=== PATIENT | male | born 1980 | race American Indian/Alaskan Native ===

== ENCOUNTER 2021-07-06 12:27 | Emergency (ER) | payer SELFPAY ==
[2021-07-06 12:54] VITALS: BP 116/76
--- NOTE | 2021-07-06 13:29 | Emergency Department Report ---
- General Chief Complaint: Upper Respiratory Infection Stated Complaint: ASTHMA Time Seen by Provider: 07/06/21 12:46 Source: patient Mode of arrival: Ambulatory Limitations: No Limitations - History of Present Illness Initial Comments: 41-year-old morbid obese -[place] male presents to the emergency room reporting he has a history of COPD and has been using his Atrovent and albuterol which helps with his shortness of breath but is still having severe cough. He states that his cough is so bad is not able to sleep at night. Patient states he recently relocated from [place] to take care of a sick. He states his primary care provider is Dr. Matos [place]. Patient states he usually gets prednisone 50 mg daily for 5 days and a prescription for Tussionex. Patient denies any fever no chills no nausea no vomiting. Patient states he does not smoke cigarettes. MD Complaint: cough Onset/Timin -: days(s) Severity: severe Severity scale (0 -10): 8 Consistency: constant Context: recent travel Associated Symptoms: cough. denies: fever, chills, myalgias, diaphoresis, headache, rhinorrhea, stiff neck, chest pain, shortness of breath, abdominal pain, nausea, vomiting - Related Data Previous Rx's Medication Instructions Recorded Last Taken Type Hydrocodone/Chlorphen P-Stirex 115 ml PO Q12H PRN #115 heber.er.12h 07/06/21 Unknown Rx [Tussionex Pennkinetic Susp] predniSONE [Deltasone] 50 mg PO QDAY 5 Days #5 tab 07/06/21 Unknown Rx Allergies Allergy/AdvReac Type Severity Reaction Status Date / Time No Known Allergies Allergy Unverified 07/06/21 12:30 ED Review of Systems ROS: Stated complaint: ASTHMA Other details as noted in HPI Comment: All other systems reviewed and negative ED Past Medical Hx - Medications Home Medications: Home Medications Medication Instructions Recorded Confirmed Last Taken Type Hydrocodone/Chlorphen P-Stirex 115 ml PO Q12H PRN #115 heber.er.12h 07/06/21 Unknown Rx [Tussionex Pennkinetic Susp] predniSONE [Deltasone] 50 mg PO QDAY 5 Days #5 tab 07/06/21 Unknown Rx ED Physical Exam - General Limitations: No Limitations General appearance: alert, in no apparent distress, obese - Head Head exam: Present: atraumatic, normocephalic - Eye Eye exam: Present: normal appearance - ENT ENT exam: Present: mucous membranes moist - Neck Neck exam: Present: normal inspection - Respiratory Respiratory exam: Present: normal lung sounds bilaterally. Absent: respiratory distress - Cardiovascular Cardiovascular Exam: Present: regular rate, normal rhythm. Absent: systolic murmur, diastolic murmur, rubs, gallop - GI/Abdominal GI/Abdominal exam: Present: soft, normal bowel sounds - Rectal Rectal exam: Present: deferred - Extremities Exam Extremities exam: Present: normal inspection - Back Exam Back exam: Present: normal inspection - Neurological Exam Neurological exam: Present: alert, oriented X3 - Psychiatric Psychiatric exam: Present: normal affect, normal mood - Skin Skin exam: Present: warm, dry, intact, normal color. Absent: rash ED Course Vital Signs 07/06/21 07/06/21 12:30 12:53 Temperature 99.4 F 99.6 F Pulse Rate 92 H 94 H Respiratory 20 16 Rate Blood Pressure 138/69 116/76 [Right] O2 Sat by Pulse 95 96 Oximetry ED Medical Decision Making - Medical Decision Making 41-year-old morbid obese -[place] male presents to the emergency room reporting he has a history of COPD and has been using his Atrovent and albuterol which helps with his shortness of breath but is still having severe cough. He states that his cough is so bad is not able to sleep at night. Patient states he recently relocated from [place] to take care of a sick. He states his primary care provider is Dr. Matos [place]. Patient states he usually gets prednisone 50 mg daily for 5 days and a prescription for Tussionex. Patient denies any fever no chills no nausea no vomiting. Patient states he does not smoke cigarettes. Patient's lungs are clear do not hear any wheezing or rhonchus. Patient will be placed on prednisone 50 mg daily for 5 days and a prescription for Tussionex. Critical care attestation.: If time is entered above; I have spent that time in minutes in the direct care of this critically ill patient, excluding procedure time. ED Disposition Clinical Impression: COPD (chronic obstructive pulmonary disease), Cough, Severely overweight Disposition: 01 HOME / SELF CARE / HOMELESS Is pt being admited?: No Does the pt Need Aspirin: No Condition: Stable Instructions: Chronic Obstructive Pulmonary Disease (ED), Chronic Obstructive Pulmonary Disease Exacerbation, [id number], Exercising to Lose Weight, BMI for Adults, COPD and Physical Activity Additional Instructions: Complete steroids as prescribed. Take cough medication only as needed. Do not operate heavy machinery while taking cough medication. Is important to follow- up with a primary care provider and a laboratory technologist. Is very important you lose weight as you may be having obstructive sleep disorder. Prescriptions: predniSONE [Deltasone] 50 mg PO QDAY 5 Days #5 tab Hydrocodone/Chlorphen P-Stirex [Tussionex Pennkinetic Susp] 115 ml PO Q12H PRN #115 heber.er.12h PRN Reason: Cough Referrals: VERN KNAPP MD [Staff Physician] - 3-5 Days LUISA GARLAND MD [Staff Physician] - 3-5 Days Time of Disposition: 13:31
== END 2021-07-06 13:52 | disposition home or self-care (01) ==
LOC: ED 12:27
DX: J44.9 Chronic obstructive pulmonary disease, unspecified (principal); Z79.899 Other long term (current) drug therapy
CPT/HCPCS: 99282

== ENCOUNTER 2021-11-16 17:12 | Emergency (ER) | payer SELFPAY ==
--- NOTE | 2021-11-16 18:03 | XRay Report ---
CHEST 2 VIEWS INDICATION / CLINICAL INFORMATION: cough. COMPARISON: None available. FINDINGS: SUPPORT DEVICES: None. HEART / MEDIASTINUM: No significant abnormality. LUNGS / PLEURA: No significant pulmonary or pleural abnormality. No pneumothorax. ADDITIONAL FINDINGS: No significant additional findings. IMPRESSION: 1. No acute findings. Signer Name: Hola Willett MD Signed: 11/16/2021 5:58 PM Workstation Name: [id number]
--- NOTE | 2021-11-16 22:07 | Emergency Department Report ---
- General Chief Complaint: Upper Respiratory Infection Stated Complaint: ASTHMA/BAD COUGH Time Seen by Provider: 11/16/21 21:32 Source: patient Mode of arrival: Ambulatory Limitations: No Limitations - History of Present Illness Initial Comments: 41-year-old male with past medical history of asthma and chronic bronchitis presents emerged department complaining of a flareup after returning home to [facility]. States while he was home there is a lot of snow when he had return to this morning department and now reports having a 4-day history of cough congestion with mucus production. Reports no fever, chills, sweats. No hemoptysis symptoms and no hematochezia. States that he has asthma medication at home but he does need a refill of his steroids and Intestinex to the comb ination he received the last time he had flareup MD Complaint: cough, nasal congestion -: Gradual Consistency: constant Associated Symptoms: cough. denies: headache, rhinorrhea, nasal congestion, vomiting, diarrhea, dysuria, right sweats, weight loss, epistaxis - Related Data Previous Rx's Medication Instructions Recorded Last Taken Type Hydrocodone/Chlorphen P-Stirex 115 ml PO Q12H PRN #115 heber.er.12h 11/16/21 Unknown Rx [Tussionex Pennkinetic Susp] Hydrocodone/Chlorphen Polis(Nf 5 ml PO Q12H PRN #240 11/16/21 Unknown Rx [Tussionex (Nf)] predniSONE [Deltasone] 50 mg PO QDAY 5 Days #5 tab 11/16/21 Unknown Rx Allergies Allergy/AdvReac Type Severity Reaction Status Date / Time No Known Allergies Allergy Unverified 07/06/21 12:30 ED Review of Systems ROS: Stated complaint: ASTHMA/BAD COUGH Other details as noted in HPI Comment: All other systems reviewed and negative ED Past Medical Hx - Medications Home Medications: Home Medications Medication Instructions Recorded Confirmed Last Taken Type Hydrocodone/Chlorphen P-Stirex 115 ml PO Q12H PRN #115 heber.er.12h 11/16/21 Unknown Rx [Tussionex Pennkinetic Susp] Hydrocodone/Chlorphen Polis(Nf 5 ml PO Q12H PRN #240 11/16/21 Unknown Rx [Tussionex (Nf)] predniSONE [Deltasone] 50 mg PO QDAY 5 Days #5 tab 11/16/21 Unknown Rx ED Physical Exam - General Limitations: No Limitations General appearance: alert, in no apparent distress - Head Head exam: Present: atraumatic, normocephalic - Eye Eye exam: Present: normal appearance - ENT ENT exam: Present: mucous membranes moist - Neck Neck exam: Present: normal inspection - Respiratory Respiratory exam: Present: normal lung sounds bilaterally. Absent: respiratory distress - Cardiovascular Cardiovascular Exam: Present: regular rate, normal rhythm. Absent: systolic murmur, diastolic murmur, rubs, gallop - GI/Abdominal GI/Abdominal exam: Present: soft, normal bowel sounds - Rectal Rectal exam: Present: deferred - Extremities Exam Extremities exam: Present: normal inspection - Back Exam Back exam: Present: normal inspection - Neurological Exam Neurological exam: Present: alert, oriented X3 - Psychiatric Psychiatric exam: Present: normal affect, normal mood - Skin Skin exam: Present: warm, dry, intact, normal color. Absent: rash ED Course Vital Signs 11/16/21 17:31 Temperature 98.5 F Pulse Rate 95 H Respiratory 16 Rate Blood Pressure 167/95 [Left] O2 Sat by Pulse 96 Oximetry ED Medical Decision Making - Medical Decision Making This patient presents with acute cough, most consistent with bronchitis. Differential diagnosis includes asthma, bronchitis, pneumonia, GERD. Presentation not consistent with acute bacterial pneumonia, influenza, asthma, transient airway hyperresponsiveness. Presentation not consistent with chronic causes of cough (including GERD, asthma, postnasal discharge, medication side effect, CHF, lung cancer or mass). Plan: , supportive care, reassess Critical care attestation.: If time is entered above; I have spent that time in minutes in the direct care of this critically ill patient, excluding procedure time. ED Disposition Clinical Impression: Bronchitis Disposition: 01 HOME / SELF CARE / HOMELESS Is pt being admited?: No Does the pt Need Aspirin: No Condition: Stable Instructions: Chronic Bronchitis (ED), How to Use a Dry Powder Inhaler, Upper Respiratory Infection, Adult, [id number], How to Use a Metered Dose Inhaler Prescriptions: predniSONE [Deltasone] 50 mg PO QDAY 5 Days #5 tab Hydrocodone/Chlorphen Polis(Nf [Tussionex (Nf)] 5 ml PO Q12H PRN #240 PRN Reason: cough Hydrocodone/Chlorphen P-Stirex [Tussionex Pennkinetic Susp] 115 ml PO Q12H PRN #115 heber.er.12h PRN Reason: Cough Referrals: LUISA GARLAND MD [Primary Care Provider] - 3-5 Days
[2021-11-16 22:31] VITALS: BP 150/90
== END 2021-11-16 22:32 | disposition home or self-care (01) ==
LOC: ED 17:12
DX: J40 Bronchitis, not specified as acute or chronic (principal); Z79.899 Other long term (current) drug therapy
CPT/HCPCS: 71046; 99283

== ENCOUNTER 2022-03-23 12:25 | Emergency (ER) | payer SELFPAY ==
--- NOTE | 2022-03-23 15:10 | Emergency Department Report ---
ED Asthma HPI - General Chief Complaint: Adult Asthma Stated Complaint: ASTHMA, BAD COUGH Time Seen by Provider: 03/23/22 12:45 Source: patient Mode of arrival: Ambulatory Limitations: No Limitations - History of Present Illness Initial Comments: 41 yo M who present with worsening wheezing with sob and dry cough x the last 2- 3 days. No fever or chills reported. He says he has tried his usual rescue medications without improvement. No other modifying or associated factors reported. MD Complaint: "asthma attack", wheezing - Related Data Previous Rx's Medication Instructions Recorded Last Taken Type Hydrocodone/Chlorphen P-Stirex 115 ml PO Q12H PRN #115 heber.er.12h 11/16/21 Unknown Rx [Tussionex Pennkinetic Susp] Hydrocodone/Chlorphen Polis(Nf 5 ml PO Q12H PRN #240 11/16/21 Unknown Rx [Tussionex (Nf)] predniSONE [Deltasone] 50 mg PO QDAY 5 Days #5 tab 11/16/21 Unknown Rx Albuterol Mdi (or & Nicu Only) 2 puff IH QID PRN 3 Days #8.5 gram 03/23/22 Unknown Rx [ProAir HFA Inhaler] NS Benzonatate [Tessalon Perles] 100 mg PO Q8HR 5 Days #15 cap NS 03/23/22 Unknown Rx methylPREDNISolone [Medrol 4MG 4 mg PO DAILY 6 Days #21 tab NS 03/23/22 Unknown Rx DOSEPAK (21 tabs)] Allergies Allergy/AdvReac Type Severity Reaction Status Date / Time No Known Allergies Allergy Verified 03/23/22 12:27 ED Review of Systems ROS: Stated complaint: ASTHMA, BAD COUGH Other details as noted in HPI Comment: All other systems reviewed and negative Respiratory: cough, shortness of breath, wheezing ED Past Medical Hx - Past Medical History Hx Asthma: Yes - Social History Smoking Status: Never Smoker Substance Use Type: None - Medications Home Medications: Home Medications Medication Instructions Recorded Confirmed Last Taken Type Hydrocodone/Chlorphen P-Stirex 115 ml PO Q12H PRN #115 heber.er.12h 11/16/21 Unknown Rx [Tussionex Pennkinetic Susp] Hydrocodone/Chlorphen Polis(Nf 5 ml PO Q12H PRN #240 11/16/21 Unknown Rx [Tussionex (Nf)] predniSONE [Deltasone] 50 mg PO QDAY 5 Days #5 tab 11/16/21 Unknown Rx Albuterol Mdi (or & Nicu Only) 2 puff IH QID PRN 3 Days #8.5 gram 03/23/22 Unknown Rx [ProAir HFA Inhaler] NS Benzonatate [Tessalon Perles] 100 mg PO Q8HR 5 Days #15 cap NS 03/23/22 Unknown Rx methylPREDNISolone [Medrol 4MG 4 mg PO DAILY 6 Days #21 tab NS 03/23/22 Unknown Rx DOSEPAK (21 tabs)] ED Physical Exam - General Limitations: No Limitations - Head Head exam: Present: normal inspection - Eye Eye exam: Present: normal appearance Pupils: Present: normal accommodation - ENT ENT exam: Present: normal exam, normal orophraynx, mucous membranes moist - Neck Neck exam: Present: normal inspection, full ROM. Absent: tenderness - Respiratory Respiratory exam: Present: wheezes. Absent: chest wall tenderness - Cardiovascular Cardiovascular Exam: Present: regular rate, normal rhythm - GI/Abdominal GI/Abdominal exam: Present: soft, normal bowel sounds. Absent: distended, tenderness - Extremities Exam Extremities exam: Present: normal inspection, normal capillary refill. Absent: tenderness, pedal edema - Back Exam Back exam: Absent: tenderness - Neurological Exam Neurological exam: Present: alert, oriented X3 - Psychiatric Psychiatric exam: Present: normal affect, normal mood - Skin Skin exam: Present: warm, normal color ED Course Vital Signs 03/23/22 03/23/22 03/23/22 12:33 12:43 14:48 Temperature 98.6 F 97.6 F Pulse Rate 96 H 98 H 80 Pulse Rate [ Bilateral Throughout] Respiratory 24 20 20 Rate Respiratory Rate [Bilateral Throughout] Blood Pressure 148/97 Blood Pressure 179/99 148/97 163/80 [Right] O2 Sat by Pulse 100 97 97 Oximetry 03/23/22 03/23/22 16:55 18:27 Temperature Pulse Rate 83 Pulse Rate [ 96 H Bilateral Throughout] Respiratory 20 Rate Respiratory 16 Rate [Bilateral Throughout] Blood Pressure Blood Pressure 122/58 [Right] O2 Sat by Pulse 95 Oximetry ED Medical Decision Making - EKG Data -: EKG Interpreted by Hi EKG shows normal: sinus rhythm Rate: normal - EKG Data 03/23/22 16:41 Initial EKG is noted to be normal sinus rhythm at a rate of 88 bpm, possible left atrial enlargement with no acute ST elevation or depression noted in this abnormal ECG. - Radiology Data FINDINGS: SUPPORT DEVICES: None. HEART / MEDIASTINUM: No significant abnormality. LUNGS / PLEURA: No significant pulmonary or pleural abnormality. No pneumothorax. ADDITIONAL FINDINGS: No significant additional findings. IMPRESSION: 1. No acute findings. - Medical Decision Making Patient presented with asthma attack--with appreciable wheezing and dry cough for the last 3 days not getting better on her own breathing treatment--we will go ahead and get a chest x-ray to rule out any pneumonia, and in the meantime we will give DuoNeb and 125 mg of Solu-Medrol. Pt requested for decadron and DuoNeb for wheezing and toradol for chest wall pain -- Chest x-ray does not show any acute pulmonary findings--patient reassured with home albuterol for wheezing and breathing treatments and dexamethasone to continue to help his symptoms also given Tessalon Perle for cough. Pt called me into the room and requested for cough syrup with codeine. I did explained to this patient that he did not need any cough syrup with opoiod at this point that she is already going home with cough medication for likely viral cause and breathing treatment medication with stroid that will be appropriate to help his symptoms. He says there was a doctor that have told him the he was going to need the requested medication before he gets better. I explain to this patient to call the doctor and ask for that particular medication. He requested for ED webbing supervisor and i called in the charge nurse to talk to patient. Critical care attestation.: If time is entered above; I have spent that time in minutes in the direct care of this critically ill patient, excluding procedure time. ED Disposition Clinical Impression: Asthma exacerbation attacks Qualifiers: Asthma severity: unspecified severity Asthma persistence: unspecified Qualified Code(s): J45.901 - Unspecified asthma with (acute) exacerbation Disposition: 01 HOME / SELF CARE / HOMELESS Is pt being admited?: No Does the pt Need Aspirin: No Condition: Stable Instructions: Asthma, Adult, [id number], Asthma Attack Prevention, Adult Additional Instructions: Take and complete your steroid as prescribed to continue to help your symptoms Call and follow-up with your primary doctor in the next 3 to 5 days for progress Please do not hesitate to call or return to emergency room if your symptoms worsen Prescriptions: methylPREDNISolone [Medrol 4MG DOSEPAK (21 tabs)] 4 mg PO DAILY 6 Days #21 tab NS Albuterol Mdi (or & Nicu Only) [ProAir HFA Inhaler] 2 puff IH QID PRN 3 Days #8.5 gram NS PRN Reason: Shortness Of Breath Benzonatate [Tessalon Perles] 100 mg PO Q8HR 5 Days #15 cap NS Referrals: PRIMARY CARE, [Primary Care Provider] - 3-5 Days Time of Disposition: 16:59
[2022-03-23] MEDS ORDERED: IPRATROPIUM/ALBUTEROL SULFATE 3 ML AMPUL.NEB IH ONE (15:18)
--- NOTE | 2022-03-23 15:37 | XRay Report ---
CHEST 1 VIEW 03/23/2022 2:31 PM INDICATION / CLINICAL INFORMATION: wheezing. COMPARISON: 11/16/21 FINDINGS: SUPPORT DEVICES: None. HEART / MEDIASTINUM: No significant abnormality. LUNGS / PLEURA: No significant pulmonary or pleural abnormality. No pneumothorax. ADDITIONAL FINDINGS: No significant additional findings. IMPRESSION: 1. No acute findings. Signer Name: Elena Vazquez MD Signed: 03/23/2022 3:33 PM Workstation Name: [id number]
[2022-03-23] MEDS ORDERED: KETOROLAC 30 MG/1 ML INJ IV ONE (16:17)
[2022-03-23] MEDS ORDERED: dexAMETHasone 20 MG in SODIUM CHLORIDE 0.9% 50 ML IV ONE (16:18)
[2022-03-23] MEDS ORDERED: ALBUTEROL 2.5 MG/3 ML NEBU IH ONE (22:39)
[2022-03-23 23:29] VITALS: BP 134/78
--- NOTE | 2022-03-25 16:51 | Electrocardiograph Report ---
[facility] Test Date: 2022-03-23 Test Time: 13:07:31 Pat Name: JERRY HIGGINS Department: Room: Gender: M Olive Grader: 911 : 1980 Requested By: GARRISON MARES Order Number: [id number] Reading MD: Fabiola Ritchie Measurements Intervals Mott Rate: 88 P: 33 MI: 172 QRS: 3 QRSD: 102 T: 32 QT: 364 QTc: 441 Interpretive Statements Sinus rhythm Probable left atrial enlargement Consider old anteroseptal infarct No previous ECG available for comparison Electronically Signed On 03-25-2022 16:51:01 EDT by Fabiola Ritchie
== END 2022-03-23 23:33 | disposition home or self-care (01) ==
LOC: ED 12:25
DX: J45.901 Unspecified asthma with (acute) exacerbation (principal); Z79.899 Other long term (current) drug therapy
CPT/HCPCS: 71045; 93005; 94640; 96365; 96375; 99284; J1100; J1885; 94644

== ENCOUNTER 2022-03-23 23:55 | Emergency (ER) | payer SELFPAY ==
--- NOTE | 2022-03-24 07:26 | Emergency Department Report ---
- General Chief Complaint: Upper Respiratory Infection Stated Complaint: BAD COUGH Time Seen by Provider: 03/24/22 07:18 Source: patient Mode of arrival: Ambulatory Limitations: No Limitations - History of Present Illness Initial Comments: This is a 41-year-old male nontoxic, well nourished in appearance, no acute signs of distress presents to the ED demanding to be prescribed " Phenergan with codeine cough syrup" for acute on chronic "bronchitis". Patient was seen yesterday and stated that he did not started his medication as prescribed but is requested for cough syrup medication. Patient denies any recent travels, long car, recent hospital stays. Patient denies any calf pain or calf tenderness. Patient denies any chest pain, short of breath, fever, chills, nausea, vomiting, hemoptysis, numbness, tingling, headache or stiff neck. Denies any allergies. MD Complaint: cough -: days(s) Severity scale (0 -10): 0 Improves With: nothing Worsens With: nothing Associated Symptoms: cough. denies: fever, chills, myalgias, diaphoresis, headache, rhinorrhea, nasal congestion, sore throat, stiff neck, chest pain, shortness of breath, abdominal pain, nausea, vomiting, diarrhea, dysuria, rash, confusion, right sweats, weight loss, epistaxis, hoarseness, ear pain Treatments Prior to Arrival: none - Related Data Previous Rx's Medication Instructions Recorded Last Taken Type Hydrocodone/Chlorphen P-Stirex 115 ml PO Q12H PRN #115 heber.er.12h 11/16/21 Unknown Rx [Tussionex Pennkinetic Susp] Hydrocodone/Chlorphen Polis(Nf 5 ml PO Q12H PRN #240 11/16/21 Unknown Rx [Tussionex (Nf)] predniSONE [Deltasone] 50 mg PO QDAY 5 Days #5 tab 11/16/21 Unknown Rx Albuterol Mdi (or & Nicu Only) 2 puff IH QID PRN 3 Days #8.5 gram 03/23/22 Unkn own Rx [ProAir HFA Inhaler] NS Benzonatate [Tessalon Perles] 100 mg PO Q8HR 5 Days #15 cap NS 03/23/22 Unknown Rx methylPREDNISolone [Medrol 4MG 4 mg PO DAILY 6 Days #21 tab NS 03/23/22 Unknown Rx DOSEPAK (21 tabs)] Allergies Allergy/AdvReac Type Severity Reaction Status Date / Time No Known Allergies Allergy Verified 03/23/22 12:27 ED Review of Systems ROS: Stated complaint: BAD COUGH Other details as noted in HPI Comment: All other systems reviewed and negative Constitutional: denies: chills, fever Eyes: denies: eye pain, eye discharge, vision change ENT: denies: ear pain, throat pain Respiratory: cough. denies: orthopnea, shortness of breath, SOB with exertion, SOB at rest, stridor, wheezing Cardiovascular: denies: chest pain, palpitations Endocrine: no symptoms reported Gastrointestinal: denies: abdominal pain, nausea, diarrhea Genitourinary: denies: urgency, dysuria Musculoskeletal: denies: back pain, joint swelling, arthralgia Skin: denies: rash, lesions Neurological: denies: headache, weakness, paresthesias Psychiatric: denies: anxiety, depression Hematological/Lymphatic: denies: easy bleeding, easy bruising ED Past Medical Hx - Past Medical History Previous Medical History?: Yes Hx Asthma: Yes - Surgical History Past Surgical History?: No - Social History Smoking Status: Never Smoker Substance Use Type: None - Medications Home Medications: Home Medications Medication Instructions Recorded Confirmed Last Taken Type Hydrocodone/Chlorphen P-Stirex 115 ml PO Q12H PRN #115 heber.er.12h 11/16/21 Unknown Rx [Tussionex Pennkinetic Susp] Hydrocodone/Chlorphen Polis(Nf 5 ml PO Q12H PRN #240 11/16/21 Unknown Rx [Tussionex (Nf)] predniSONE [Deltasone] 50 mg PO QDAY 5 Days #5 tab 11/16/21 Unknown Rx Albuterol Mdi (or & Nicu Only) 2 puff IH QID PRN 3 Days #8.5 gram 03/23/22 Unknown Rx [ProAir HFA Inhaler] NS Benzonatate [Tessalon Perles] 100 mg PO Q8HR 5 Days #15 cap NS 03/23/22 Unknown Rx methylPREDNISolone [Medrol 4MG 4 mg PO DAILY 6 Days #21 tab NS 03/23/22 Unknown Rx DOSEPAK (21 tabs)] ED Physical Exam - General Limitations: No Limitations General appearance: alert, in no apparent distress - Head Head exam: Present: atraumatic, normocephalic - Eye Eye exam: Present: normal appearance - Neck Neck exam: Present: normal inspection, full ROM. Absent: lymphadenopathy - Respiratory Respiratory exam: Present: normal lung sounds bilaterally. Absent: respiratory distress, wheezes, rales, rhonchi, stridor, chest wall tenderness, accessory muscle use, decreased breath sounds, prolonged expiratory - Cardiovascular Cardiovascular Exam: Present: regular rate, normal rhythm, normal heart sounds. Absent: bradycardia, tachycardia, irregular rhythm, systolic murmur, diastolic murmur, rubs, gallop - Extremities Exam Extremities exam: Present: full ROM - Back Exam Back exam: Present: normal inspection, full ROM - Neurological Exam Neurological exam: Present: alert, oriented X3, normal gait - Psychiatric Psychiatric exam: Present: normal affect, normal mood - Skin Skin exam: Present: warm, dry, intact, normal color. Absent: rash ED Course Vital Signs 03/24/22 00:13 Temperature 97.8 F Pulse Rate 98 H Respiratory 18 Rate Blood Pressure 155/104 O2 Sat by Pulse 98 Oximetry - Reevaluation(s) Reevaluation #1: 03/24/22 07:23 Patient is speaking in full sentences with no signs of distress noted. - Consultations Consultation #1: 03/24/22 07:24 Patient has been consulted with Dr. Gallegos about patient history, physical exam, and previous imaging results and agrees to the discharge plan of care. ED Medical Decision Making - Radiology Data [facility] [address] [place] [address] XRay Report Signed Patient: JERRY HIGGINS MR#: [id number] : 1980 Acct:[id number] Age/Sex: 41 / M ADM Date: 03/23/22 Loc: ED Attending Dr: Ordering Physician: GARRISON MARES Date of Service: 03/23/22 Procedure(s): XR chest 1V ap Accession Number(s): [id number] cc: GARRISON MARES Fluoro Time In Minutes: CHEST 1 VIEW 03/23/2022 2:31 PM INDICATION / CLINICAL INFORMATION: wheezing. COMPARISON: 11/16/21 FINDINGS: SUPPORT DEVICES: None. HEART / MEDIASTINUM: No significant abnormality. LUNGS / PLEURA: No significant pulmonary or pleural abnormality. No pneumothorax. ADDITIONAL FINDINGS: No significant additional findings. IMPRESSION: 1. No acute findings. Signer Name: Elena Vazquez MD Signed: 03/23/2022 3:33 PM Workstation Name: [id number] Transcribed By: DT Dictated By: Bahman Vazquez MD Electronically Authenticated By: Bahman Vazquez MD Signed Date/Time: 03/23/221532 DD/ 32 TD/TT: - Medical Decision Making This is a 41-year-old male that presents with medication refill. Patient is stable and was examined by me. Chest x-ray has been reviewed from yesterday's visit and dictated by radiologist with normal exam. Patient is notified of x- ray results with no questions noted. Patient does not meet clinical concerns of COVID-19 but patient was instructed and educated on signs and symptoms and to self quarantine and seek medical attention as soon as possible if symptoms does occur. Educated patient to start taking medication that was prescribed to him during yesterday's visit as this could help him with symptoms. Patient insisted and demanded for Phenergan and codeine cough syrup to be prescribed but at this time this is a scheduled medication and educated patient that he must first try to attempt using the medication that was prescribed to him during previous visit. Vitals stable. Patient is nonfebrile and normal heart rate. Patient was instructed Follow-up with a primary care doctor in 3-5 days or if symptoms worsen and continue return to emergency room as soon as possible. At time time of discharge, the patient does not seem toxic or ill in appearance. No acute signs of distress noted. Patient agrees to discharge treatment plan of care. No further questions noted by the patient.nt. Critical care attestation.: If time is entered above; I have spent that time in minutes in the direct care of this critically ill patient, excluding procedure time. ED Disposition Clinical Impression: Medication refill Disposition: 01 HOME / SELF CARE / HOMELESS Is pt being admited?: No Does the pt Need Aspirin: No Condition: Stable Additional Instructions: Follow-up with a primary care doctor in 3-5 days or if symptoms worsen and continue return to emergency room as soon as possible. Please take medication that was prescribed to you during previous visit. Referrals: PRIMARY CARE, [Referring] - 3-5 Days LUISA GALRAND MD [Staff Physician] - 3-5 Days [facility] [Outside] - 3-5 Days [facility] [Provider Group] - 3-5 Days Time of Disposition: 07:26
[2022-03-24 07:59] VITALS: BP 140/87
== END 2022-03-24 07:46 | disposition home or self-care (01) ==
LOC: ED 23:55
DX: J45.909 Unspecified asthma, uncomplicated (principal); Z76.0 Encounter for issue of repeat prescription; Z79.899 Other long term (current) drug therapy
CPT/HCPCS: 99282